=== PATIENT | female | born 1985 | race Caucasian/White ===

== ENCOUNTER 2021-06-25 23:31 | Emergency (ER) | payer MEDICAID ==
[~2021-06-25] VITALS: Ht 162.6 cm; Wt 81.8 kg
[2021-06-26 00:16] VITALS: BP 166/70
--- NOTE | 2021-06-26 00:19 | PHYS DOC ---
Past Medical History Additional Past Medical Histor: COVID-19 01/2021, DRUG ABUSE TAKES SUBOXONE Past Surgical History: Cholecystectomy, Additional Past Surgical Histo: X2 General Adult EDM: Chief Complaint: MULTIPLE COMPLAINTS HPI: HPI: Patient is a 36 year old constipation and rectal bleeding. Patient has taken several OTC medcations over the last few days. 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 Patient states significant other looked at patient's rectum and it looks like patient had a rectal prolapse. On exam no rectal prolapse present. Patient did have an anal fissure that was not bleeding. Review of Systems: Review of Systems: Constitutional: Denies fever or chills. [] Eyes: Denies change in visual acuity. [] HENT: Denies nasal congestion or sore throat. [] Respiratory: Denies cough or shortness of breath. [] Cardiovascular: Denies chest pain or edema. [] GI: Denies abdominal pain, nausea, vomiting, positive bloody stools positive constipation : Denies dysuria. [] Musculoskeletal: Denies back pain or joint pain. [] Integument: Denies rash. [] Neurologic: Denies headache, focal weakness or sensory changes. [] Endocrine: Denies polyuria or polydipsia. [] Lymphatic: Denies swollen glands. [] Psychiatric: Denies depression or anxiety. [] Heart Score: C/O Chest Pain: N/A Risk Factors: Risk Factors: DM, Current or recent (<one month) smoker, HTN, HLP, family history of CAD, obesity. Risk Scores: Score 0 - 3: 2.5% MACE over next 6 weeks - Discharge Home Score 4 - 6: 20.3% MACE over next 6 weeks - Admit for Clinical Observation Score 7 - 10: 72.7% MACE over next 6 weeks - Early Invasive Strategies Allergies: Allergies: Allergies Coded Allergies Type Severity Reaction Last Updated Verified Penicillins Allergy Unknown 06/25/21 Yes codeine Allergy Unknown ITCHING 06/25/21 Yes sulfamethoxazole Allergy Unknown RASH 06/25/21 Yes trimethoprim Allergy Unknown RASH 06/25/21 Yes Physical Exam: PE: General: alert, no acute distress. Skin: warm, dry and intact, no erythema, no rash. HENT: bilateral external ears normal, oropharynx moist, nose normal. Head:: Normocephalic, atraumatic. Neck: Trachea midline. Eyes: EOMI, Normal conjunctiva, No drainage CARDIOVASCULAR: Regular rate and rhythm RESPIRATORY: No respiratory distress Back: Full range of motion. MUSCULOSKELETAL: Full range of motion of bilateral upper and lower extremities. GASTROINTESTINAL: Abdomen soft without rebound or guarding. Anal fissure no rectal prolapse NEUROLOGICAL: Alert and noted to person, place and time. No neurological deficits observed Psychiatric: Cooperative. Normal judgment Current Patient Data: Vital Signs: Vital Signs Date Time Temp Pulse Resp B/P (MAP) Pulse Ox O2 Delivery O2 Flow Rate FiO2 06/25/21 23:49 98.4 75 16 132/72 99 Room Air 98.4 EKG: EKG: [] Radiology/Procedures: Radiology/Procedures: [] Course & Med Decision Making: Course & Med Decision Making Pertinent Labs and Imaging studies reviewed. (See chart for details) [] Dragon Disclaimer: Dragon Disclaimer: This electronic medical record was generated, in whole or in part, using a voice recognition dictation system. Departure Departure Impression: Primary Impression: Constipation Additional Impression: Anal fissure Disposition: HOME / SELF CARE / HOMELESS Condition: STABLE Referrals: NO PCP (PCP) Patient Instructions: Anal Fissure, Adult, Constipation, Adult BRYANT BEACH DO Jun 26, 2021 00:19
[2021-06-26] MEDS ORDERED: PEG4000S8 PO (00:24)
== END 2021-06-26 00:45 | disposition home or self-care (01) ==
LOC: ER 23:31
DX: K59.00 Constipation, unspecified (principal); K60.2 Anal fissure, unspecified; Z90.49 Acquired absence of other specified parts of digestive tract; Z88.0 Allergy status to penicillin; Z88.1 Allergy status to other antibiotic agents; Z88.2 Allergy status to sulfonamides; Z88.5 Allergy status to narcotic agent
CPT/HCPCS: 99283

== ENCOUNTER 2021-08-10 14:57 | Inpatient (IN) | payer MEDICAID ==
[~2021-08-10] VITALS: Ht 162.6 cm; Wt 77.0 kg
[~2021-08-10 14:57] MED LIST: PEG4000S8 PO
[2021-08-10] MEDS ORDERED: ONDANSETRON PF 4 MG/2 ML VIAL. IVP ONE (15:30)
[2021-08-10] MEDS ORDERED: fentaNYL PF VIAL 100 MCG/2 ML VIAL IVP ONE (15:30)
--- NOTE | 2021-08-10 15:43 | PHYS DOC ---
Past Medical History Additional Past Medical Histor: COVID-19 01/2021, DRUG ABUSE TAKES SUBOXONE Past Surgical History: Cholecystectomy, Additional Past Surgical Histo: X2 Smoking Status: Current Every Day Smoker Additional Information: 1 ppd Alcohol Use: None Social History Narrative: occasional General Adult EDM: Chief Complaint: ABDOMINAL PAIN HPI: HPI: Patient is a 36 year old female with history of cholecystectomy presented today complaining of 10 out of 10 sharp periumbilical abdominal pain, abdominal swelling, nausea and vomiting, symptoms began 3 to 4 days ago. Patient denies anything specifically exacerbating or relieving her symptoms. Denies any diarrhea or constipation. She states she has had regular bowel movement with the last bowel movement today. Denies any chance she is . She states she has an IUD. Review of Systems: Review of Systems: Constitutional: Denies fever or chills. [] Eyes: Denies change in visual acuity. [] HENT: Denies nasal congestion or sore throat. [] Respiratory: Denies cough or shortness of breath. [] Cardiovascular: Denies chest pain or edema. [] GI: Reports abdominal pain, swelling, nausea and vomiting, denies bloody stools or diarrhea. [] : Denies dysuria. [] Musculoskeletal: Denies back pain or joint pain. [] Integument: Denies rash. [] Neurologic: Denies headache, focal weakness or sensory changes. [] Psychiatric: Denies depression or anxiety. [] Heart Score: C/O Chest Pain: N/A Risk Factors: Risk Factors: DM, Current or recent (<one month) smoker, HTN, HLP, family history of CAD, obesity. Risk Scores: Score 0 - 3: 2.5% MACE over next 6 weeks - Discharge Home Score 4 - 6: 20.3% MACE over next 6 weeks - Admit for Clinical Observation Score 7 - 10: 72.7% MACE over next 6 weeks - Early Invasive Strategies Current Medications: Current Medications Medications (Trade) Dose Ordered Sig/Ney Start Time Stop Time Status Last Admin Dose Admin Fentanyl Citrate (Fentanyl 2ml Vial) 50 mcg 1X ONCE 08/10/21 15:30 08/10/21 15:36 DC Ondansetron HCl (Zofran) 4 mg 1X ONCE 08/10/21 15:30 08/10/21 15:36 DC Allergies: Allergies: Allergies Coded Allergies Type Severity Reaction Last Updated Verified Penicillins Allergy Intermediate 08/10/21 Yes sulfamethoxazole Allergy Intermediate RASH 08/10/21 Yes trimethoprim Allergy Intermediate RASH 08/10/21 Yes codeine Adverse Reaction Unknown ITCHING 08/10/21 Yes Physical Exam: PE: Constitutional: Well developed, well nourished, no acute distress, non-toxic appearance. [] HENT: Normocephalic, atraumatic, bilateral external ears normal, oropharynx moist, no oral exudates, nose normal. [] Eyes: PERRLA, EOMI, conjunctiva normal, no discharge. [] Neck: Normal range of motion, no tenderness, supple, no stridor. [] Cardiovascular:Heart rate regular rhythm, no murmur [] Lungs & Thorax: Bilateral breath sounds clear to auscultation [] Abdomen: Rounded abdomen, bowel sounds normal, soft, tenderness over the umbilicus, no right upper quadrant or right lower quadrant tenderness, no m asses, no pulsatile masses. [] Skin: Warm, dry, no erythema, no rash. [] Back: No tenderness, no CVA tenderness. [] Extremities: No tenderness, no cyanosis, no clubbing, ROM intact, no edema. [] Neurologic: Alert and oriented X 3, normal motor function, normal sensory function, no focal deficits noted. [] Psychologic: Affect normal, judgement normal, mood normal. [] Current Patient Data: Labs: Laboratory Tests Test 08/10/21 15:33 POC Urine HCG, Qualitative Hcg negative (Negative) Vital Signs: Vital Signs Date Time Temp Pulse Resp B/P (MAP) Pulse Ox O2 Delivery O2 Flow Rate FiO2 08/10/21 15:13 98.3 87 18 128/85 (99) 98 Room Air 98.3 EKG: EKG: [] Radiology/Procedures: Radiology/Procedures: []PROCEDURE: CT ABD PELV W/ IV CONTRST ONLY EXAMINATION: CT abdomen and pelvis with IV contrast. INDICATION:36 years, Female, abdominal pain. TECHNIQUE: Axial CT images of the abdomen and pelvis were obtained. Coronal and sagittal reformatted performed. COMPARISON: None. Exposure: One or more of the following individualized dose reduction techniques were utilized for this examination: 1. Automated exposure control 2. Adjustment of the mA and/or kV according to patient size 3. Use of iterative reconstruction technique. FINDINGS: LOWER CHEST: Unremarkable. ABDOMEN/PELVIS: Fluid filled distended stomach with mildly dilated small bowel loops; the transition zone seen in the posterior cul-de-sac where there is a short segment of distal ileum demonstrate subtle wall thickening with minimal adjacent fat stranding (series 2 image 72, and series 4 image 37). Normal appendix. Liver and spleen are unremarkable. Cholecystectomy. No biliary ductal dilation. Moderate atrophic pancreas. Indeterminate 2.0 cm right adrenal nodule. Nodular thickening of the left adrenal gland without discrete nodule. No hydronephrosis. There is a 5 mm nonobstructing calculus in the upper pole right kidney. Normal caliber abdominal aorta. Mesenteric arteries and portal vein are patent. No ascites or pneumoperitoneum. No lymphadenopathy in the abdomen or pelvis by size criteria. Unremarkable urinary bladder. Uterus is anteverted, anteflexed with IUD in place. No suspicious pelvic masses. MUSCULOSKELETAL: No acute osseous process. Small fat-containing umbilical hernia. IMPRESSION: 1. Partial small bowel obstruction with transition zone in the posterior cul-de-sac where there is a short segment of distal ileum demonstrates subtle wall thickening with minimal adjacent fat stranding. Findings may reflect infectious/inflammatory colitis. Consider Crohn's disease. 2. Indeterminate 2.0 cm right adrenal nodule. With no personal history of primary malignancy, findings statistically representing benign adenoma. Consider nonemergent dedicated CT adrenal protocol, as warranted. 3. Nonobstructing 5 mm right nephrolithiasis. Electronically signed by: Humberto Long MD (08/10/2021 5:06 PM) [facility] DICTATED and SIGNED BY: HUMBERTO LONG MD DATE: 08/10/21 [id number] 0 Course & Med Decision Making: Course & Med Decision Making Pertinent Labs and Imaging studies reviewed. (See chart for details) This a 36-year-old female patient presented to the ED today with abdominal pain, nausea and vomiting, abdominal swelling, symptoms for 3 to 4 days. Negative urine hCG, CBC CMP with no acute findings, UA positive for UTI started on Cipro. CT of the abdomen and pelvic was noted for small bowel obstruction, colitis or Crohn's. Also noted for 2.0 cm adrenal nodule to the right. Also noted for 5 mm right nephrolithiasis. Spoke with Dr. Vaughan, NG was ordered IV fluids and pain medicine Spoke with Dr. Enriquez who accepted patient for admission Routine consult placed for GI Apolinar Disclaimer: Apolinar Disclaimer: This electronic medical record was generated, in whole or in part, using a voice recognition dictation system. Departure Departure Impression: Primary Impression: SBO (small bowel obstruction) Additional Impressions: UTI (urinary tract infection) Qualified Codes: N39.0 - Urinary tract infection, site not specified Crohn's colitis Qualified Codes: K50.119 - Crohn's disease of large intestine with unspecified complications Marijuana use Right nephrolithiasis Adrenal nodule Disposition: ADMITTED INPATIENT Condition: STABLE Referrals: NO PCP (PCP) PAULA CUNNINGHAM RESISTANCE WELDER Aug 10, 2021 15:43
[2021-08-10] MEDS ORDERED: IOHEXOL 300 MG/ML 100ML VIAL. IV ONE (15:45)
[2021-08-10 16:05] LABS: BASO # 0.1 x10^3/uL (0.0-0.2); BASO % 1 % (0-3); EOS # 0.3 x10^3/uL (0.0-0.7); EOS % 4 % (0-3); HEMATOCRIT 39.6 % (36.0-47.0); HEMOGLOBIN 14.1 g/dL (12.0-15.5); LYMPH # 2.4 x10^3/uL (1.0-4.8); LYMPH % 34 % (24-48); MEAN CORPUSCULAR HEMOGLOBIN 35 pg (25-35); MEAN CORPUSCULAR HGB CONC 36 g/dL (31-37); MEAN CORPUSCULAR VOLUME 98 fL (79-100); MONO # 0.8 x10^3/uL (0.0-1.1); MONO % 11 % (0-9); NEUT # 3.7 x10^3/uL (1.8-7.7); NEUT % 51 % (31-73); PLATELET COUNT 248 x10^3/uL (140-400); RED BLOOD COUNT 4.04 x10^6/uL (3.50-5.40); RED CELL DISTRIBUTION WIDTH 13.3 % (11.5-14.5); WHITE BLOOD COUNT 7.2 x10^3/uL (4.0-11.0)
[2021-08-10 16:13] LABS: BILIRUBIN,URINE NEGATIVE (NEG); CLARITY,URINE CLEAR; COLOR,URINE YELLOW; NITRITE,URINE NEGATIVE (NEG); PH,URINE 7.5 (<5.0-8.0); PROTEIN,URINE NEGATIVE (NEG-TRACE); UROBILINOGEN,URINE 0.2 mg/dL (0.2 mg/dL)
[2021-08-10 16:19] LABS: BARBITURATES NEG (NEG); BENZODIAZEPINES NEG (NEG); CANNABINOIDS POS (NEG); COCAINE NEG (NEG); METHADONE NEG (NEG); OPIATES NEG (NEG); PHENCYCLIDINE NEG (NEG)
[2021-08-10 16:20] LABS: BACTERIA,URINE MODERATE /HPF (0-FEW)
[2021-08-10 16:21] LABS: AMPHETAMINE/METHAMPHETAMINE NEG (NEG)
[2021-08-10 16:23] LABS: CALCIUM 9.9 mg/dL (8.5-10.1); CREATININE 1.2 mg/dL (0.6-1.0); GFR 50.8; POTASSIUM 4.1 mmol/L (3.5-5.1)
[2021-08-10 16:29] LABS: ALBUMIN 3.9 g/dL (3.4-5.0); ALBUMIN/GLOBULIN RATIO 1.3 (1.0-1.7); TOTAL BILIRUBIN 0.3 mg/dL (0.2-1.0)
[2021-08-10] MEDS ORDERED: MORPHINE SULFATE 10 MG/ML VIAL. IV ONE (16:30)
--- NOTE | 2021-08-10 17:09 | RAD ---
EXAMINATION: CT abdomen and pelvis with IV contrast. INDICATION:36 years, Female, abdominal pain. TECHNIQUE: Axial CT images of the abdomen and pelvis were obtained. Coronal and sagittal reformatted performed. COMPARISON: None. Exposure: One or more of the following individualized dose reduction techniques were utilized for thi s examination: 1. Automated exposure control 2. Adjustment of the mA and/or kV according to patient size 3. Use of iterative reconstruction technique. FINDINGS: LOWER CHEST: Unremarkable. ABDOMEN/PELVIS: Fluid filled distended stomach with mildly dilated small bowel loops; the transition zone seen in the posterior cul-de-sac where there is a short segment of distal ileum demonstrate subtle wall thickeni ng with minimal adjacent fat stranding (series 2 image 72, and series 4 image 37). Normal appendix. Liver and spleen are unremarkable. Cholecystectomy. No biliary ductal dilation. Moderate atrophic rodriguez creas. Indeterminate 2.0 cm right adrenal nodule. Nodular thickening of the left adrenal gland withou t discrete nodule. No hydronephrosis. There is a 5 mm nonobstructing calculus in the upper pole right kidney. Normal caliber abdominal aorta. Mesenteric arteries and portal vein are patent. No ascites o r pneumoperitoneum. No lymphadenopathy in the abdomen or pelvis by size criteria. Unremarkable urinar y bladder. Uterus is anteverted, anteflexed with IUD in place. No suspicious pelvic masses. MUSCULOSKELETAL: No acute osseous process. Small fat-containing umbilical hernia. IMPRESSION: 1. Partial small bowel obstruction with transition zone in the posterior cul-de-sac where there is a short segment of distal ileum demonstrates subtle wall thickening with minimal adjacent fat stranding . Findings may reflect infectious/inflammatory colitis. Consider Crohn's disease. 2. Indeterminate 2.0 cm right adrenal nodule. With no personal history of primary malignancy, finding s statistically representing benign adenoma. Consider nonemergent dedicated CT adrenal protocol, as w arranted. 3. Nonobstructing 5 mm right nephrolithiasis. Electronically signed by: Neptali Long MD (08/10/2021 5:06 PM) [facility]
[2021-08-10] MEDS ORDERED: IV NORMAL SALINE 1000ML BAG 1,000 ML IV ONE (17:30)
[2021-08-10] MEDS ORDERED: CIPROFLOXACIN 400MG PREMIX 200 ML IV ONE (17:30)
[2021-08-10] MEDS ORDERED: ONDANSETRON PF 4 MG/2 ML VIAL. IVP PRN (17:30)
--- NOTE | 2021-08-10 17:30 | PDOC1 ---
History and Physical Date of Admission Date of Admission DATE: 08/10/21 TIME: 17:29 Identification/Chief Complaint Chief Complaint Abdominal pain Source Source: Caregiver, Patient History of Present Illness History of Present Illness Patient is a 36-year-old female with past medical history seizure disorder, cholecystectomy, section x2, presents to the ED with complaints of worsening abdominal pain over the past week. She reports associated nausea, vomiting, and abdominal distention. Labs on admission showed creatinine 1.2. CT abdomen/pelvis showed partial small bowel obstruction with transition zone in the posterior cul-de-sac where there is a short segment of distal ileum demonstrates subtle wall thickening with minimal adjacent fat stranding. Her last bowel movement was this morning. She received IV fluids and IV pain management in ED. Patient will be admitted for further medical management. Past Medical History Past Medical History Seizures Past Surgical History Past Surgical History: Cholecystectomy, Family History Family History: Cancer (Colon cancer) Social History Smoke: 1 pack per day ALCOHOL: none Drugs: Marijuana Current Medications Current Medications Current Medications Fentanyl Citrate (Fentanyl 2ml Vial) 50 mcg 1X ONCE IVP Last administered on 08/10/21at 15:51; Start 08/10/21 at 15:30; Stop 08/10/21 at 15:36; Status DC Ondansetron HCl (Zofran) 4 mg 1X ONCE IVP Last administered on 08/10/21at 15:49; Start 08/10/21 at 15:30; Stop 08/10/21 at 15:36; Status DC Iohexol (Omnipaque 300 Mg/ml) 75 ml 1X ONCE IV Last administered on 08/10/21at 15:45; Start 08/10/21 at 15:45; Stop 08/10/21 at 15:46; Status DC Morphine Sulfate (Morphine Sulfate) 5 mg 1X ONCE IV Last administered on 08/10/21at 17:24; Start 08/10/21 at 16:30; Stop 08/10/21 at 16:33; Status DC Active Scripts Active Golytely Solution (Peg 3350/Na Sulf,Bicarb,Cl/Kcl) 4,000 Ml Soln.recon 4,000 Ml PO 1X 1 Days Drink 8 oz q 10 min until clear Allergies Allergies: Coded Allergies: Penicillins (Verified Allergy, Intermediate, 08/10/21) sulfamethoxazole (Verified Allergy, Intermediate, RASH, 08/10/21) trimethoprim (Verified Allergy, Intermediate, RASH, 08/10/21) codeine (Verified Adverse Reaction, Unknown, ITCHING, 08/10/21) ROS Review of System GENERAL: No history of weight change, weakness or fevers. SKIN: No bruising, hair changes or rashes. EYES: No blurred, double or loss of vision. NOSE AND THROAT: No history of nosebleeds, hoarseness or sore throat. HEART: Denies chest pain, denies palpitations. LUNGS: Denies cough, hemoptysis, wheezing or shortness of breath. GASTROINTESTINAL: Abdominal pain, nausea, vomiting. GENITOURINARY: Denies dysuria, frequency, urgency, hematuria. NEUROLOGIC: Denies history of numbness, tingling, tremor or weakness. PSYCHIATRIC: Denies anxiety, denies depression. ENDOCRINE: No history of heat or cold intolerance, polyuria or polydipsia. EXTREMITIES: Denies muscle weakness, joint pain, pain on walking or stiffness. Physical Exam Physical Exam General: Alert, Oriented X3, Cooperative, mild distress HEENT: PERRLA, EOMI Lungs: Clear to auscultation, Normal air movement Heart: RRR, no murmurs Cardiovascular: S1, S2 Abdomen: Hypoactive bowel sounds. Mildly distended abdomen. Soft, generalized tenderness. Extremities: No clubbing, No cyanosis Skin: No rashes, No significant lesion Neuro: Normal speech, Normal tone, Sensation intact Psych/Mental Status: Mental status NL, Mood NL Vitals Vitals Vital Signs Date Time Temp Pulse Resp B/P (MAP) Pulse Ox O2 Delivery O2 Flow Rate FiO2 08/10/21 17:24 18 98 Room Air 08/10/21 17:24 85 135/70 (91) 08/10/21 15:13 98.3 98.3 Labs Labs Laboratory Tests Test 08/10/21 15:10 08/10/21 15:33 08/10/21 15:44 Urine Collection Type Unknown Urine Color Yellow Urine Clarity Clear Urine pH 7.5 (<5.0-8.0) Urine Specific [place] <=1.005 (1.000-1.030) Urine Protein Negative mg/dL (NEG-TRACE) Urine Glucose (UA) Negative mg/dL (NEG) Urine Ketones (Stick) Negative mg/dL (NEG) Urine Blood Negative (NEG) Urine Nitrite Negative (NEG) Urine Bilirubin Negative (NEG) Urine Urobilinogen Dipstick 0.2 mg/dL (0.2 mg/dL) Urine Leukocyte Esterase Large (NEG) Urine RBC 1-2 /HPF (0-2) Urine WBC 1-4 /HPF (0-4) Urine Squamous Epithelial Cells Mod /LPF Urine Bacteria Moderate /HPF (0-FEW) Urine Opiates Screen Neg (NEG) Urine Methadone Screen Neg (NEG) Urine Barbiturates Neg (NEG) Urine Phencyclidine Screen Neg (NEG) Urine Amphetamine/Methamphetamine Neg (NEG) Urine Benzodiazepines Screen Neg (NEG) Urine Cocaine Screen Neg (NEG) Urine Cannabinoids Screen Pos (NEG) Urine Ethyl Alcohol Neg (NEG) Bedside Urine HCG, Qualitative Hcg negative (Negative) White Blood Count 7.2 x10^3/uL (4.0-11.0) Red Blood Count 4.04 x10^6/uL (3.50-5.40) Hemoglobin 14.1 g/dL (12.0-15.5) Hematocrit 39.6 % (36.0-47.0) Mean Corpuscular Volume 98 fL (79-100) Mean Corpuscular Hemoglobin 35 pg (25-35) Mean Corpuscular Hemoglobin Concent 36 g/dL (31-37) Red Cell Distribution Width 13.3 % (11.5-14.5) Platelet Count 248 x10^3/uL (140-400) Neutrophils (%) (Auto) 51 % (31-73) Lymphocytes (%) (Auto) 34 % (24-48) Monocytes (%) (Auto) 11 % (0-9) Eosinophils (%) (Auto) 4 % (0-3) Basophils (%) (Auto) 1 % (0-3) Neutrophils # (Auto) 3.7 x10^3/uL (1.8-7.7) Lymphocytes # (Auto) 2.4 x10^3/uL (1.0-4.8) Monocytes # (Auto) 0.8 x10^3/uL (0.0-1.1) Eosinophils # (Auto) 0.3 x10^3/uL (0.0-0.7) Basophils # (Auto) 0.1 x10^3/uL (0.0-0.2) Sodium Level 137 mmol/L (136-145) Potassium Level 4.1 mmol/L (3.5-5.1) Chloride Level 98 mmol/L (98-107) Carbon Dioxide Level 31 mmol/L (21-32) Anion Gap 8 (6-14) Blood Urea Nitrogen 10 mg/dL (7-20) Creatinine 1.2 mg/dL (0.6-1.0) Estimated GFR (Cockcroft-Gault) 50.8 BUN/Creatinine Ratio 8 (6-20) Glucose Level 95 mg/dL (70-99) Calcium Level 9.9 mg/dL (8.5-10.1) Total Bilirubin 0.3 mg/dL (0.2-1.0) Aspartate Amino Transf (AST/SGOT) 18 U/L (15-37) Alanine Aminotransferase (ALT/SGPT) 31 U/L (14-59) Alkaline Phosphatase 72 U/L (46-116) Total Protein 7.0 g/dL (6.4-8.2) Albumin 3.9 g/dL (3.4-5.0) Albumin/Globulin Ratio 1.3 (1.0-1.7) Lipase 67 U/L (73-393) Ethyl Alcohol Level < 10 mg/dL (0-10) Laboratory Tests Test 08/10/21 15:10 08/10/21 15:33 08/10/21 15:44 Urine Collection Type Unknown Urine Color Yellow Urine Clarity Clear Urine pH 7.5 (<5.0-8.0) Urine Specific [place] <=1.005 (1.000-1.030) Urine Protein Negative mg/dL (NEG-TRACE) Urine Glucose (UA) Negative mg/dL (NEG) Urine Ketones (Stick) Negative mg/dL (NEG) Urine Blood Negative (NEG) Urine Nitrite Negative (NEG) Urine Bilirubin Negative (NEG) Urine Urobilinogen Dipstick 0.2 mg/dL (0.2 mg/dL) Urine Leukocyte Esterase Large (NEG) Urine RBC 1-2 /HPF (0-2) Urine WBC 1-4 /HPF (0-4) Urine Squamous Epithelial Cells Mod /LPF Urine Bacteria Moderate /HPF (0-FEW) Urine Opiates Screen Neg (NEG) Urine Methadone Screen Neg (NEG) Urine Barbiturates Neg (NEG) Urine Phencyclidine Screen Neg (NEG) Urine Amphetamine/Methamphetamine Neg (NEG) Urine Benzodiazepines Screen Neg (NEG) Urine Cocaine Screen Neg (NEG) Urine Cannabinoids Screen Pos (NEG) Urine Ethyl Alcohol Neg (NEG) Bedside Urine HCG, Qualitative Hcg negative (Negative) White Blood Count 7.2 x10^3/uL (4.0-11.0) Red Blood Count 4.04 x10^6/uL (3.50-5.40) Hemoglobin 14.1 g/dL (12.0-15.5) Hematocrit 39.6 % (36.0-47.0) Mean Corpuscular Volume 98 fL (79-100) Mean Corpuscular Hemoglobin 35 pg (25-35) Mean Corpuscular Hemoglobin Concent 36 g/dL (31-37) Red Cell Distribution Width 13.3 % (11.5-14.5) Platelet Count 248 x10^3/uL (140-400) Neutrophils (%) (Auto) 51 % (31-73) Lymphocytes (%) (Auto) 34 % (24-48) Monocytes (%) (Auto) 11 % (0-9) Eosinophils (%) (Auto) 4 % (0-3) Basophils (%) (Auto) 1 % (0-3) Neutrophils # (Auto) 3.7 x10^3/uL (1.8-7.7) Lymphocytes # (Auto) 2.4 x10^3/uL (1.0-4.8) Monocytes # (Auto) 0.8 x10^3/uL (0.0-1.1) Eosinophils # (Auto) 0.3 x10^3/uL (0.0-0.7) Basophils # (Auto) 0.1 x10^3/uL (0.0-0.2) Sodium Level 137 mmol/L (136-145) Potassium Level 4.1 mmol/L (3.5-5.1) Chloride Level 98 mmol/L (98-107) Carbon Dioxide Level 31 mmol/L (21-32) Anion Gap 8 (6-14) Blood Urea Nitrogen 10 mg/dL (7-20) Creatinine 1.2 mg/dL (0.6-1.0) Estimated GFR (Cockcroft-Gault) 50.8 BUN/Creatinine Ratio 8 (6-20) Glucose Level 95 mg/dL (70-99) Calcium Level 9.9 mg/dL (8.5-10.1) Total Bilirubin 0.3 mg/dL (0.2-1.0) Aspartate Amino Transf (AST/SGOT) 18 U/L (15-37) Alanine Aminotransferase (ALT/SGPT) 31 U/L (14-59) Alkaline Phosphatase 72 U/L (46-116) Total Protein 7.0 g/dL (6.4-8.2) Albumin 3.9 g/dL (3.4-5.0) Albumin/Globulin Ratio 1.3 (1.0-1.7) Lipase 67 U/L (73-393) Ethyl Alcohol Level < 10 mg/dL (0-10) Images Images PATIENT: JAMI SHEIKH ACCOUNT: [id number] : 1985 LOCATION: ER AGE: 36 SEX: F EXAM STATUS: REG ER ORD. PHYSICIAN: PAULA CUNNINGHAM APRN REASON: Abdominal pain PROCEDURE: CT ABD PELV W/ IV CONTRST ONLY EXAMINATION: CT abdomen and pelvis with IV contrast. INDICATION:36 years, Female, abdominal pain. TECHNIQUE: Axial CT images of the abdomen and pelvis were obtained. Coronal and sagittal reformatted performed. COMPARISON: None. Exposure: One or more of the following individualized dose reduction techniques were utilized for this examination: 1. Automated exposure control 2. Adjustment of the mA and/or kV according to patient size 3. Use of iterative reconstruction technique. FINDINGS: LOWER CHEST: Unremarkable. ABDOMEN/PELVIS: Fluid filled distended stomach with mildly dilated small bowel loops; the transition zone seen in the posterior cul-de-sac where there is a short segment of distal ileum demonstrate subtle wall thickening with minimal adjacent fat st randing (series 2 image 72, and series 4 image 37). Normal appendix. Liver and spleen are unremarkable. Cholecystectomy. No biliary ductal dilation. Moderate atrophic pancreas. Indeterminate 2.0 cm right adrenal nodule. Nodular thickening of the left adrenal gland without discrete nodule. No hydronephrosis. There is a 5 mm nonobstructing calculus in the upper pole right kidney. Normal caliber abdominal aorta. Mesenteric arteries and portal vein are patent. No ascites or pneumoperitoneum. No lymphadenopathy in the abdomen or pelvis by size criteria. Unremarkable urinary bladder. Uterus is anteverted, anteflexed with IUD in place. No suspicious pelvic masses. MUSCULOSKELETAL: No acute osseous process. Small fat-containing umbilical hernia. IMPRESSION: 1. Partial small bowel obstruction with transition zone in the posterior cul-de-sac where there is a short segment of distal ileum demonstrates subtle wall thickening with minimal adjacent fat stranding. Findings may reflect infectious/inflammatory colitis. Consider Crohn's disease. 2. Indeterminate 2.0 cm right adrenal nodule. With no personal history of primary malignancy, findings statistically representing benign adenoma. Consider nonemergent dedicated CT adrenal protocol, as warranted. 3. Nonobstructing 5 mm right nephrolithiasis. VTE Prophylaxis Ordered VTE Prophylaxis Devices: No VTE Pharmacological Prophylaxi: Yes Assessment/Plan Assessment/Plan Partial bowel obstruction MARISA 5 mm nonobstructing nephrolithiasis Indeterminate 2.0 cm right adrenal nodule Plan: Will place order to have NG tube inserted in ED Maintain NG tube to low suction Place consultation to general surgery Continue with IV fluids IV pain management, IV antiemetics Transition her oral Keppra IV while n.p.o. (states she takes Keppra 1000 mg every morning and Keppra 500 mg every night) Right adrenal nodule likely benign adenoma. Consider nonemergent dedicated CT adrenal protocol. FEN - NPO PPX - Heparin FULL CODE Dispo - inpatient for above Patient names her boyfriend (Giancarlo Julian) as surrogate decision-maker Justifications for Admission Other Justification DAYANA CARROLL MD Aug 10, 2021 17:30
[2021-08-10] MEDS ORDERED: MORPHINE SULFATE 4 MG/ML INJ. IVP PRN (18:15)
[2021-08-10] MEDS ORDERED: diphenhydrAMINE 50 MG/ML VIAL IVP PRN (18:15)
[2021-08-10] MEDS ORDERED: IV NORMAL SALINE 1000ML BAG 1,000 ML IV PRN (18:15)
[2021-08-10] MEDS ORDERED: ACETAMINOPHEN 325 MG TABLET. PO PRN (18:30)
[2021-08-10] MEDS ORDERED: CALCIUM CARBONATE 500 MG TAB.CHEW PO PRN (18:30)
[2021-08-10] MEDS ORDERED: MAG HYDROX/ALUMINUM HYD/SIMETH 30 ML ORAL.SUSP PO PRN (18:30)
[2021-08-10 19:00] VITALS: BP 135/59
[2021-08-10] MEDS: MORPHINE SULFATE 4 MG/ML INJ. IVP PRN ×2 (19:32→21:55)
[2021-08-10] MEDS ORDERED: levETIRAcetam 500 MG in IV DEXTROSE 5% 100ML 100 ML IV SCH (21:00)
[2021-08-10] MEDS: HEPARIN for SUB-Q USE 5,000 UNIT/ML VIAL. SQ SCH (22:28)
[2021-08-10 23:23] VITALS: BP 110/55
[2021-08-11 03:00] VITALS: BP 101/53
[2021-08-11] MEDS: MORPHINE SULFATE 4 MG/ML INJ. IVP PRN ×3 (03:22→08:36)
[2021-08-11] MEDS: HEPARIN for SUB-Q USE 5,000 UNIT/ML VIAL. SQ SCH (06:08)
[2021-08-11 07:15] VITALS: BP 103/61
--- NOTE | 2021-08-11 07:44 | NUR ---
Pt requesting to go smoke stated "can I just sneak out?" She was told no and she asked if she could have a nicotine patch. Order for Nicotine patch 21mg change daily
--- NOTE | 2021-08-11 08:11 | PDOC2 ---
CONSULT Date of Consult Date of Consult DATE: 08/11/21 TIME: 08:08 Reason for Consult Reason for Consult: Abdominal pain Referring Physician Referring Physician: Mina Identification/Chief Complaint Chief Complaint Abdominal pain Source Source: Chart review, Patient History of Present Illness Reason for Visit: 36-year-old female with 24-hour history of crampy abdominal pain with some nausea no vomiting. Pain became unbearable visited emergency department further evaluation CT scan showed loops of dilated small bowel with a transition point in the pelvis. She states her last bowel movement was yesterday and normal. Since being admitted she has had very small bowel movements and passing flatus feels much better this morning no nausea Past Medical History Cardiovascular: No pertinent hx Pulmonary: No pertinent hx GI: No pertinent hx Heme/Onc: No pertinent hx Hepatobiliary: No pertinent hx Psych: No pertinent hx Rheumatologic: No pertinent hx Infectious disease: No pertinent hx ENT: No pertinent hx Renal/: No pertinent hx Endocrine: No pertinent hx Dermatology: No pertinent hx Past Surgical History Past Surgical History: Cholecystectomy, Family History Family History: Cancer (Colon cancer) Social History 1 pack per day ALCOHOL: none Drugs: Marijuana Current Problem List Problem List Problems Medical Problems: (1) Adrenal nodule Status: Acute (2) Crohn's colitis Status: Acute (3) Marijuana use Status: Acute (4) Right nephrolithiasis Status: Acute (5) SBO (small bowel obstruction) Status: Acute (6) UTI (urinary tract infection) Status: Acute Current Medications Current Medications Current Medications Fentanyl Citrate (Fentanyl 2ml Vial) 50 mcg 1X ONCE IVP Last administered on 08/10/21at 15:51; Start 08/10/21 at 15:30; Stop 08/10/21 at 15:36; Status DC Ondansetron HCl (Zofran) 4 mg 1X ONCE IVP Last administered on 08/10/21at 15:49; Start 08/10/21 at 15:30; Stop 08/10/21 at 15:36; Status DC Iohexol (Omnipaque 300 Mg/ml) 75 ml 1X ONCE IV Last administered on 08/10/21at 15:45; Start 08/10/21 at 15:45; Stop 08/10/21 at 15:46; Status DC Morphine Sulfate (Morphine Sulfate) 5 mg 1X ONCE IV Last administered on 08/10/21at 17:24; Start 08/10/21 at 16:30; Stop 08/10/21 at 16:33; Status DC Ondansetron HCl (Zofran) 4 mg PRN Q8HRS PRN IVP NAUSEA/VOMITING; Start 08/10/21 at 17:30; Stop 08/11/21 at 17:29 Morphine Sulfate (Morphine Sulfate) 4 mg PRN Q2HR PRN IVP PAIN Last administered on 08/11/21at 06:05; Start 08/10/21 at 17:30; Stop 08/11/21 at 17:29 Sodium Chloride 1,000 ml @ 100 mls/hr 1X ONCE IV Last administered on 08/10/21at 17:54; Start 08/10/21 at 17:30; Stop 08/11/21 at 03:29; Status DC Ciprofloxacin/ Dextrose 200 ml @ 200 mls/hr 1X ONCE IV Last administered on 08/10/21at 17:57; Start 08/10/21 at 17:30; Stop 08/10/21 at 18:29; Status DC Sodium Chloride 1,000 ml @ 100 mls/hr CONT PRN IV .; Start 08/10/21 at 18:15 Morphine Sulfate (Morphine Sulfate) 4 mg PRN Q2HR PRN IVP PAIN; Start 08/10/21 at 18:15 Diphenhydramine HCl (Benadryl) 25 mg PRN QHS PRN IVP INSOMNIA Last administered on 08/10/21at 23:59; Start 08/10/21 at 18:15 Al Hydroxide/Mg Hydroxide (Mylanta Plus Xs) 30 ml PRN Q3HRS PRN PO HEARTBURN / GAS; Start 08/10/21 at 18:30 Calcium Carbonate/ Glycine (Tums) 500 mg PRN Q3HRS PRN PO UPSET STOMACH; Start 08/10/21 at 18:30 Acetaminophen (Tylenol) 650 mg PRN Q6HRS PRN PO Headaches, Temp > 101.5F; Start 08/10/21 at 18:30 Heparin Sodium (Porcine) (Heparin Sodium) 5,000 unit Q8HRS SQ Last administered on 08/11/21at 06:08; Start 08/10/21 at 22:00 Lorazepam (Ativan Inj) 1 mg PRN Q6HRS PRN IVP ANXIETY / AGITATION; Start 08/10/21 at 18:45 Levetiracetam 500 mg/Dextrose 105 ml @ 420 mls/hr QHS IV Last administered on 08/10/21at 22:24; Start 08/10/21 at 21:00 Levetiracetam 1000 mg/Dextrose 110 ml @ 440 mls/hr QAM IV ; Start 08/11/21 at 09:00 Lorazepam (Ativan Inj) 2 mg PRN Q10MIN PRN IVP SEE COMMENTS; Start 08/10/21 at 19:45 Nicotine (Nicoderm Cq 21mg) 1 patch DAILY TD Last administered on 08/11/21at 07:52; Start 08/11/21 at 09:00 Active Scripts Active Golytely Solution (Peg 3350/Na Sulf,Bicarb,Cl/Kcl) 4,000 Ml Soln.recon 4,000 Ml PO 1X 1 Days Drink 8 oz q 10 min until clear Allergies Allergies: Coded Allergies: Penicillins (Verified Allergy, Intermediate, 08/10/21) sulfamethoxazole (Verified Allergy, Intermediate, RASH, 08/10/21) trimethoprim (Verified Allergy, Intermediate, RASH, 08/10/21) codeine (Verified Adverse Reaction, Unknown, ITCHING, 08/10/21) ROS Gastrointestinal: Yes Nausea, Yes Abdominal Pain Physical Exam General: Alert, Oriented X3, Cooperative, No acute distress HEENT: Atraumatic, EOMI Lungs: Clear to auscultation, Normal air movement Heart: Regular rate, No murmurs Abdomen: Normal bowel sounds, Soft, No tenderness, Other (Benign exam) Extremities: No edema Skin: No significant lesion Neuro: Normal speech Psych/Mental Status: Mental status NL Vitals VITALS Vital Signs Date Time Temp Pulse Resp B/P (MAP) Pulse Ox O2 Delivery O2 Flow Rate FiO2 08/11/21 06:05 20 Room Air 08/11/21 03:00 98.1 62 101/53 (69) 97 98.1 Labs Labs Laboratory Tests Test 08/10/21 15:10 08/10/21 15:33 08/10/21 15:44 08/10/21 18:05 Urine Collection Type Unknown Urine Color Yellow Urine Clarity Clear Urine pH 7.5 (<5.0-8.0) Urine Specific [place] <=1.005 (1.000-1.030) Urine Protein Negative mg/dL (NEG-TRACE) Urine Glucose (UA) Negative mg/dL (NEG) Urine Ketones (Stick) Negative mg/dL (NEG) Urine Blood Negative (NEG) Urine Nitrite Negative (NEG) Urine Bilirubin Negative (NEG) Urine Urobilinogen Dipstick 0.2 mg/dL (0.2 mg/dL) Urine Leukocyte Esterase Large (NEG) Urine RBC 1-2 /HPF (0-2) Urine WBC 1-4 /HPF (0-4) Urine Squamous Epithelial Cells Mod /LPF Urine Bacteria Moderate /HPF (0-FEW) Urine Opiates Screen Neg (NEG) Urine Methadone Screen Neg (NEG) Urine Barbiturates Neg (NEG) Urine Phencyclidine Screen Neg (NEG) Urine Amphetamine/Methamphetamine Neg (NEG) Urine Benzodiazepines Screen Neg (NEG) Urine Cocaine Screen Neg (NEG) Urine Cannabinoids Screen Pos (NEG) Urine Ethyl Alcohol Neg (NEG) Bedside Urine HCG, Qualitative Hcg negative (Negative) White Blood Count 7.2 x10^3/uL (4.0-11.0) Red Blood Count 4.04 x10^6/uL (3.50-5.40) Hemoglobin 14.1 g/dL (12.0-15.5) Hematocrit 39.6 % (36.0-47.0) Mean Corpuscular Volume 98 fL (79-100) Mean Corpuscular Hemoglobin 35 pg (25-35) Mean Corpuscular Hemoglobin Concent 36 g/dL (31-37) Red Cell Distribution Width 13.3 % (11.5-14.5) Platelet Count 248 x10^3/uL (140-400) Neutrophils (%) (Auto) 51 % (31-73) Lymphocytes (%) (Auto) 34 % (24-48) Monocytes (%) (Auto) 11 % (0-9) Eosinophils (%) (Auto) 4 % (0-3) Basophils (%) (Auto) 1 % (0-3) Neutrophils # (Auto) 3.7 x10^3/uL (1.8-7.7) Lymphocytes # (Auto) 2.4 x10^3/uL (1.0-4.8) Monocytes # (Auto) 0.8 x10^3/uL (0.0-1.1) Eosinophils # (Auto) 0.3 x10^3/uL (0.0-0.7) Basophils # (Auto) 0.1 x10^3/uL (0.0-0.2) Sodium Level 137 mmol/L (136-145) Potassium Level 4.1 mmol/L (3.5-5.1) Chloride Level 98 mmol/L (98-107) Carbon Dioxide Level 31 mmol/L (21-32) Anion Gap 8 (6-14) Blood Urea Nitrogen 10 mg/dL (7-20) Creatinine 1.2 mg/dL (0.6-1.0) Estimated GFR (Cockcroft-Gault) 50.8 BUN/Creatinine Ratio 8 (6-20) Glucose Level 95 mg/dL (70-99) Calcium Level 9.9 mg/dL (8.5-10.1) Total Bilirubin 0.3 mg/dL (0.2-1.0) Aspartate Amino Transf (AST/SGOT) 18 U/L (15-37) Alanine Aminotransferase (ALT/SGPT) 31 U/L (14-59) Alkaline Phosphatase 72 U/L (46-116) Total Protein 7.0 g/dL (6.4-8.2) Albumin 3.9 g/dL (3.4-5.0) Albumin/Globulin Ratio 1.3 (1.0-1.7) Lipase 67 U/L (73-393) Ethyl Alcohol Level < 10 mg/dL (0-10) SARS-CoV-2 Antigen (Rapid) Negative (NEGATIVE) Laboratory Tests Test 08/10/21 15:10 08/10/21 15:33 08/10/21 15:44 08/10/21 18:05 Urine Collection Type Unknown Urine Color Yellow Urine Clarity Clear Urine pH 7.5 (<5.0-8.0) Urine Specific [place] <=1.005 (1.000-1.030) Urine Protein Negative mg/dL (NEG-TRACE) Urine Glucose (UA) Negative mg/dL (NEG) Urine Ketones (Stick) Negative mg/dL (NEG) Urine Blood Negative (NEG) Urine Nitrite Negative (NEG) Urine Bilirubin Negative (NEG) Urine Urobilinogen Dipstick 0.2 mg/dL (0.2 mg/dL) Urine Leukocyte Esterase Large (NEG) Urine RBC 1-2 /HPF (0-2) Urine WBC 1-4 /HPF (0-4) Urine Squamous Epithelial Cells Mod /LPF Urine Bacteria Moderate /HPF (0-FEW) Urine Opiates Screen Neg (NEG) Urine Methadone Screen Neg (NEG) Urine Barbiturates Neg (NEG) Urine Phencyclidine Screen Neg (NEG) Urine Amphetamine/Methamphetamine Neg (NEG) Urine Benzodiazepines Screen Neg (NEG) Urine Cocaine Screen Neg (NEG) Urine Cannabinoids Screen Pos (NEG) Urine Ethyl Alcohol Neg (NEG) Bedside Urine HCG, Qualitative Hcg negative (Negative) White Blood Count 7.2 x10^3/uL (4.0-11.0) Red Blood Count 4.04 x10^6/uL (3.50-5.40) Hemoglobin 14.1 g/dL (12.0-15.5) Hematocrit 39.6 % (36.0-47.0) Mean Corpuscular Volume 98 fL (79-100) Mean Corpuscular Hemoglobin 35 pg (25-35) Mean Corpuscular Hemoglobin Concent 36 g/dL (31-37) Red Cell Distribution Width 13.3 % (11.5-14.5) Platelet Count 248 x10^3/uL (140-400) Neutrophils (%) (Auto) 51 % (31-73) Lymphocytes (%) (Auto) 34 % (24-48) Monocytes (%) (Auto) 11 % (0-9) Eosinophils (%) (Auto) 4 % (0-3) Basophils (%) (Auto) 1 % (0-3) Neutrophils # (Auto) 3.7 x10^3/uL (1.8-7.7) Lymphocytes # (Auto) 2.4 x10^3/uL (1.0-4.8) Monocytes # (Auto) 0.8 x10^3/uL (0.0-1.1) Eosinophils # (Auto) 0.3 x10^3/uL (0.0-0.7) Basophils # (Auto) 0.1 x10^3/uL (0.0-0.2) Sodium Level 137 mmol/L (136-145) Potassium Level 4.1 mmol/L (3.5-5.1) Chloride Level 98 mmol/L (98-107) Carbon Dioxide Level 31 mmol/L (21-32) Anion Gap 8 (6-14) Blood Urea Nitrogen 10 mg/dL (7-20) Creatinine 1.2 mg/dL (0.6-1.0) Estimated GFR (Cockcroft-Gault) 50.8 BUN/Creatinine Ratio 8 (6-20) Glucose Level 95 mg/dL (70-99) Calcium Level 9.9 mg/dL (8.5-10.1) Total Bilirubin 0.3 mg/dL (0.2-1.0) Aspartate Amino Transf (AST/SGOT) 18 U/L (15-37) Alanine Aminotransferase (ALT/SGPT) 31 U/L (14-59) Alkaline Phosphatase 72 U/L (46-116) Total Protein 7.0 g/dL (6.4-8.2) Albumin 3.9 g/dL (3.4-5.0) Albumin/Globulin Ratio 1.3 (1.0-1.7) Lipase 67 U/L (73-393) Ethyl Alcohol Level < 10 mg/dL (0-10) SARS-CoV-2 Antigen (Rapid) Negative (NEGATIVE) Assessment/Plan Assessment/Plan Ileus appears to be resolving would advance diet to clear liquids, change pain medication to oral MARTINE HARTMAN MD Aug 11, 2021 08:11
--- NOTE | 2021-08-11 08:15 | NUR ---
Call placed to Dr. Mims's office for consult of questionable Crohn's and colitis
[2021-08-11] MEDS ORDERED: NICOTINE 21MG PATCH. TD SCH (09:00)
[2021-08-11] MEDS ORDERED: levETIRAcetam 1,000 MG in IV DEXTROSE 5% 100ML 100 ML IV SCH (09:00)
--- NOTE | 2021-08-11 09:32 | PDOC2 ---
GI CONSULT Date of Service: DATE: 08/11/21 TIME: 09:23 Reason For Consult: Crohn's? colitis? HPI: HPI: 36 y/o female from [place], in town [place] here [place] awhile. 1 week of worsening diffuse abdominal pain (crampy), associated w/ constipation. Was having a small stool daily. Tried Miralax - "I drank the whole bottle really fast" - vomited x 1. Suddenly worse yesterday, says abdomen was "hard" and distended. "They thought I had a hernia." Denies similar symptoms in the past except for one time when she was really constipated and had to use a bowel prep. H/o GERD - takes 2 Tums QHS and says she has Rx for Prilosec 40mg but doesn't always use. No dysphagia, hematemesis, weight loss, diarrhea, hematochezia, or melena. No previous EGD or colonoscopy. S/p cholecystectomy ("sludge"). No liver, pancreas, or PUD history. Denies NSAIDs. Denies IBD history. Feels better this morning - abdomen is softer, no vomiting. "Starving." No stool since Wednesday morning. Wants to eat and discharge. PMH: PMH: stress seizures, UTI, anxiety/depression, adrenal nodule, GERD x 2, cholecystectomy, tonsillectomy, IUD FH: Family History: Other (father - "colon problems," both parents - alcoholism) Social History: Smoke: 1 pack per day ALCOHOL: none Drugs: Marijuana ROS: GEN: Denies fevers, chills, sweats HEENT: Denies blurred vision, sore throat CV: Denies chest pain RESP: Denies shortness of air, cough GI: Per HPI : Denies hematuria, dysuria ENDO: Denies weight changes NEURO: Denies confusion, dizziness MSK: Denies weakness, joint pain/swelling SKIN: Denies jaundice, pruritus Vitals: Vitals: Vital Signs Date Time Temp Pulse Resp B/P (MAP) Pulse Ox O2 Delivery O2 Flow Rate FiO2 08/11/21 07:15 98.2 59 18 103/61 (75) 96 Room Air 98.2 Labs: Labs: Laboratory Tests Test 08/10/21 15:10 08/10/21 15:33 08/10/21 15:44 08/10/21 18:05 Urine Collection Type Unknown Urine Color Yellow Urine Clarity Clear Urine pH 7.5 (<5.0-8.0) Urine Specific [place] <=1.005 (1.000-1.030) Urine Protein Negative mg/dL (NEG-TRACE) Urine Glucose (UA) Negative mg/dL (NEG) Urine Ketones (Stick) Negative mg/dL (NEG) Urine Blood Negative (NEG) Urine Nitrite Negative (NEG) Urine Bilirubin Negative (NEG) Urine Urobilinogen Dipstick 0.2 mg/dL (0.2 mg/dL) Urine Leukocyte Esterase Large (NEG) Urine RBC 1-2 /HPF (0-2) Urine WBC 1-4 /HPF (0-4) Urine Squamous Epithelial Cells Mod /LPF Urine Bacteria Moderate /HPF (0-FEW) Urine Opiates Screen Neg (NEG) Urine Methadone Screen Neg (NEG) Urine Barbiturates Neg (NEG) Urine Phencyclidine Screen Neg (NEG) Urine Amphetamine/Methamphetamine Neg (NEG) Urine Benzodiazepines Screen Neg (NEG) Urine Cocaine Screen Neg (NEG) Urine Cannabinoids Screen Pos (NEG) Urine Ethyl Alcohol Neg (NEG) Bedside Urine HCG, Qualitative Hcg negative (Negative) White Blood Count 7.2 x10^3/uL (4.0-11.0) Red Blood Count 4.04 x10^6/uL (3.50-5.40) Hemoglobin 14.1 g/dL (12.0-15.5) Hematocrit 39.6 % (36.0-47.0) Mean Corpuscular Volume 98 fL (79-100) Mean Corpuscular Hemoglobin 35 pg (25-35) Mean Corpuscular Hemoglobin Concent 36 g/dL (31-37) Red Cell Distribution Width 13.3 % (11.5-14.5) Platelet Count 248 x10^3/uL (140-400) Neutrophils (%) (Auto) 51 % (31-73) Lymphocytes (%) (Auto) 34 % (24-48) Monocytes (%) (Auto) 11 % (0-9) Eosinophils (%) (Auto) 4 % (0-3) Basophils (%) (Auto) 1 % (0-3) Neutrophils # (Auto) 3.7 x10^3/uL (1.8-7.7) Lymphocytes # (Auto) 2.4 x10^3/uL (1.0-4.8) Monocytes # (Auto) 0.8 x10^3/uL (0.0-1.1) Eosinophils # (Auto) 0.3 x10^3/uL (0.0-0.7) Basophils # (Auto) 0.1 x10^3/uL (0.0-0.2) Sodium Level 137 mmol/L (136-145) Potassium Level 4.1 mmol/L (3.5-5.1) Chloride Level 98 mmol/L (98-107) Carbon Dioxide Level 31 mmol/L (21-32) Anion Gap 8 (6-14) Blood Urea Nitrogen 10 mg/dL (7-20) Creatinine 1.2 mg/dL (0.6-1.0) Estimated GFR (Cockcroft-Gault) 50.8 BUN/Creatinine Ratio 8 (6-20) Glucose Level 95 mg/dL (70-99) Calcium Level 9.9 mg/dL (8.5-10.1) Total Bilirubin 0.3 mg/dL (0.2-1.0) Aspartate Amino Transf (AST/SGOT) 18 U/L (15-37) Alanine Aminotransferase (ALT/SGPT) 31 U/L (14-59) Alkaline Phosphatase 72 U/L (46-116) Total Protein 7.0 g/dL (6.4-8.2) Albumin 3.9 g/dL (3.4-5.0) Albumin/Globulin Ratio 1.3 (1.0-1.7) Lipase 67 U/L (73-393) Ethyl Alcohol Level < 10 mg/dL (0-10) SARS-CoV-2 Antigen (Rapid) Negative (NEGATIVE) Allergies: Coded Allergies: Penicillins (Verified Allergy, Intermediate, 08/10/21) sulfamethoxazole (Verified Allergy, Intermediate, RASH, 08/10/21) trimethoprim (Verified Allergy, Intermediate, RASH, 08/10/21) codeine (Verified Adverse Reaction, Unknown, ITCHING, 08/10/21) Medications: Current Medications Medications (Trade) Dose Ordered Sig/Ney Route PRN Reason Start Time Stop Time Status Last Admin Dose Admin Fentanyl Citrate (Fentanyl 2ml Vial) 50 mcg 1X ONCE IVP 08/10/21 15:30 08/10/21 15:36 DC 08/10/21 15:51 Ondansetron HCl (Zofran) 4 mg 1X ONCE IVP 08/10/21 15:30 08/10/21 15:36 DC 08/10/21 15:49 Iohexol (Omnipaque 300 Mg/ml) 75 ml 1X ONCE IV 08/10/21 15:45 08/10/21 15:46 DC 08/10/21 15:45 Morphine Sulfate (Morphine Sulfate) 5 mg 1X ONCE IV 08/10/21 16:30 08/10/21 16:33 DC 08/10/21 17:24 Morphine Sulfate (Morphine Sulfate) 4 mg PRN Q2HR PRN IVP PAIN 08/10/21 17:30 08/11/21 09:13 DC 08/11/21 08:36 Sodium Chloride 1,000 ml @ 100 mls/hr 1X ONCE IV 08/10/21 17:30 08/11/21 03:29 DC 08/10/21 17:54 Ciprofloxacin/ Dextrose 200 ml @ 200 mls/hr 1X ONCE IV 08/10/21 17:30 08/10/21 18:29 DC 08/10/21 17:57 Diphenhydramine HCl (Benadryl) 25 mg PRN QHS PRN IVP INSOMNIA 08/10/21 18:15 08/11/21 09:13 DC 08/10/21 23:59 Heparin Sodium (Porcine) (Heparin Sodium) 5,000 unit Q8HRS SQ 08/10/21 22:00 08/11/21 09:13 DC 08/11/21 06:08 Levetiracetam 500 mg/Dextrose 105 ml @ 420 mls/hr QHS IV 08/10/21 21:00 08/11/21 09:13 DC 08/10/21 22:24 Nicotine (Nicoderm Cq 21mg) 1 patch DAILY TD 08/11/21 09:00 08/11/21 09:13 DC 08/11/21 07:52 Imaging: Imaging: CT A/P IMPRESSION: 1. Partial small bowel obstruction with transition zone in the posterior cul-de-sac where there is a short segment of distal ileum demonstrates subtle wall thickening with minimal adjacent fat stranding. Findings may reflect infectious/inflammatory colitis. Consider Crohn's disease. 2. Indeterminate 2.0 cm right adrenal nodule. With no personal history of primary malignancy, findings statistically representing benign adenoma. Consider nonemergent dedicated CT adrenal protocol, as warranted. 3. Nonobstructing 5 mm right nephrolithiasis. PE: GEN: NAD HEENT: Atraumatic, PERRL, voice is raspy, edentulous LUNGS: CTAB HEART: RRR ABD: NABS, S/ND/NT EXTREMITY: No edema SKIN: No rashes, no jaundice NEURO/PSYCH: A & O 3 A/P: A/P: Abd pain, vomiting, constipation Abnormal CT - partial SBO w/ transition zone in posterior cul-de-sac w/ short segment of distal ileum demonstrates subtle wall thickening CRC screen - average risk S/p cholecystectomy +tobacco +marijuana Rapid COVID negative -- No NGT when I saw. Pain has improved. Plans to try clears per surgery. Observe on this. Encouraged PPI compliance for GERD. We also discussed treatment for PRN co nstipation. Advised GI follow-up in [place] (where she lives). Since I have seen, she apparently discharged. MACY ORDAZ Aug 11, 2021 09:32
--- NOTE | 2021-08-11 11:29 | NUR ---
Pt left AMA at 0900 stating "my daughter was in a car accident and I have to go now. This nurse explained that insurance may or may not pay for her treatments. She is aware. Pt signed AMA papers and she had a ride pick her up at the ER doors.
== END 2021-08-11 09:00 | disposition left against medical advice (07) | DRG 386 ==
LOC: ER 14:57 → 4 NORTH 17:53
PROVIDERS: ADMIT Family Medicine; ATTEND Family Medicine
DX: K50.112 Crohn's disease of large intestine with intestinal obstruction (principal); N17.9 Acute kidney failure, unspecified; K56.7 Ileus, unspecified; N39.0 Urinary tract infection, site not specified; G40.909 Epilepsy, unspecified, not intractable, without status epilepticus; F32.A Depression, unspecified; E27.8 Other specified disorders of adrenal gland; F41.9 Anxiety disorder, unspecified; K21.9 Gastro-esophageal reflux disease without esophagitis; F12.90 Cannabis use, unspecified, uncomplicated; F17.210 Nicotine dependence, cigarettes, uncomplicated; N20.0 Calculus of kidney; Z80.0 Family history of malignant neoplasm of digestive organs; Z90.49 Acquired absence of other specified parts of digestive tract; Z20.822 Contact with and (suspected) exposure to COVID-19; Z98.891 History of uterine scar from previous surgery; K59.00 Constipation, unspecified
CPT/HCPCS: 36415; 74177; 80053; 80307; 81001; 81025; 83690; 85025; 87086; 87426; 96365; 96366; 96375; G0480; J0744; J1200; J1644; J1953; J2270; J2405; J3010; J7030; J7060; Q9967; U0003; U0005; 99285-25; G0378